=== PATIENT | female | born 1990 | race African-American/Black ===

== ENCOUNTER 2021-08-11 21:04 | Emergency (ER) | payer MEDICAID, OTHER ==
[~2021-08-11] VITALS: Ht 165.1 cm; Wt 75.0 kg
[2021-08-11 23:43] VITALS: BP 131/80
== END 2021-08-12 01:26 | disposition home or self-care (01) ==
LOC: EMS 21:07
DX: M25.571 Pain in right ankle and joints of right foot (principal); M25.471 Effusion, right ankle
CPT/HCPCS: 29515; 99284; 73600-TC; 73630-TC; Z7502

== ENCOUNTER 2021-08-12 02:58 | Emergency (ER) | payer MEDICAID ==
[~2021-08-12] VITALS: Ht 165.1 cm; Wt 75.0 kg
[2021-08-12 04:00] VITALS: BP 115/78
== END 2021-08-12 06:36 | disposition home or self-care (01) ==
LOC: EMS 02:59
DX: R07.89 Other chest pain (principal); J45.909 Unspecified asthma, uncomplicated
CPT/HCPCS: 93005; 99283

== ENCOUNTER 2022-11-05 06:33 | Emergency (ER) | payer MEDICAID, OTHER ==
[~2022-11-05] VITALS: Ht 180.3 cm; Wt 68.2 kg
[2022-11-05 12:20] VITALS: BP 131/85
== END 2022-11-05 12:36 | disposition home or self-care (01) ==
LOC: EMS 06:35
DX: R07.89 Other chest pain (principal); J45.909 Unspecified asthma, uncomplicated; F12.90 Cannabis use, unspecified, uncomplicated; Z98.890 Other specified postprocedural states
CPT/HCPCS: 71045; 84484; 93005; 99285; 36415-L1; 36415-TC